=== PATIENT | male | born 1965 | race Caucasian/White ===

== ENCOUNTER 2018-02-03 19:11 | Emergency (ER) | payer SELFPAY ==
[~2018-02-03] VITALS: Ht 180.3 cm; Wt 100.0 kg
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
--- NOTE | 2018-02-03 20:03 | RADRPT ---
EXAM DATE: 02/03/2018 7:57 PM EDT AGE/SEX: 52 years / Male INDICATIONS: Trauma. CLINICAL DATA: This is the patient's initial encounter. Patient reports that signs and symptoms have been present for 1 day and indicates a pain score of 6/10. MEDICAL/SURGICAL HISTORY: None. None. COMPARISON: No prior [place] exams available for comparison. FINDINGS: The vertebral bodies are in normal alignment without evidence of compression deformity . Pedicles ar e seen at all levels. Bone density is normal for age. Soft tissues are grossly intact. CONCLUSION: No evidence of compression deformity or spondylolisthesis. Electronically signed by: Isma Enamorado MD 02/03/2018 8:02 PM EDT
--- NOTE | 2018-02-03 20:06 | RADRPT ---
EXAM DATE: 02/03/2018 8:02 PM EDT AGE/SEX: 52 years / Male INDICATIONS: Shortness of breath and back pain. CLINICAL DATA: This is the patient's initial encounter. Patient reports that signs and symptoms have been present for 1 day and indicates a pain score of 0/10. MEDICAL/SURGICAL HISTORY: None. None. COMPARISON: No prior [place] exams available for comparison. FINDINGS: A single AP view of the chest demonstrates the lungs to be symmetrically aerated without evidence of mass, infiltrate or effusion. The cardiomediastinal contours are unremarkable. Osseous structures a re intact. CONCLUSION: No active disease. Electronically signed by: Sharan Caballero MD 02/03/2018 8:05 PM EDT
--- NOTE | 2018-02-03 20:29 | RADRPT ---
EXAM DATE: 02/03/2018 8:22 PM EDT AGE/SEX: 52 years / Male INDICATIONS: Trauma. CLINICAL DATA: This is the patient's initial encounter. Patient reports that signs and symptoms have been present for 1 day and indicates a pain score of 7/10. MEDICAL/SURGICAL HISTORY: None. None. RADIATION DOSE: 19.22 CTDI (mGy) COMPARISON: No prior [place] exams available for comparison. TECHNIQUE: Contiguous axial images were obtained using helical multirow detector technique. The vol umetric data was post-processed with multiplanar reconstruction in oblique axial, sagittal, and coron al planes. Using automated exposure control and adjustment of the mA and/or kV according to patient s ize, radiation dose was kept as low as reasonably achievable to obtain optimal diagnostic quality sera ges. FINDINGS: There is normal alignment of the vertebral bodies of the cervical spine and preservation of vertebral body height. The atlantoaxial articulation is intact. There is unilateral focal hypertrophic change in the lateral masses and uncovertebral joint on the right side at the C3-4 level C2-3: No fracture seen. The neural foramina are patent. C3-4: No fracture seen. Right-sided lateral mass hypertrophy and uncovertebral joint hypertrophy cau ses moderately severe right-sided bony neural foraminal stenosis. C4-5: No fracture seen. The neural foramina are patent. C5-6: No fracture seen. The neural foramina are patent. C6-7: No fracture seen. The neural foramina are patent. C7-T1: No fracture seen. The neural foramina are patent. CONCLUSION: 1. No evidence of compression deformity or spondylolisthesis. 2. 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 Electronically signed by: Isma Enamorado MD 02/03/2018 8:28 PM EDT
--- NOTE | 2018-02-03 20:30 | RADRPT ---
EXAM DATE: 02/03/2018 8:23 PM EDT AGE/SEX: 52 years / Male INDICATIONS: Trauma CLINICAL DATA: This is the patient's initial encounter. Patient reports that signs and symptoms have been present for 1 day and indicates a pain score of 7/10. MEDICAL/SURGICAL HISTORY: None. None. RADIATION DOSE: 42.13 CTDI (mGy) COMPARISON: No prior [place] exams available for comparison. TECHNIQUE: CT of the head without contrast. Using automated exposure control and adjustment of the mA and/or kV according to patient size, radiation dose was kept as low as reasonably achievable to ob tain optimal diagnostic quality images. FINDINGS: Cerebrum: The ventricles are normal for age. No evidence of midline shift, mass lesion, hemorrhage or acute infarction. No extraaxial fluid collections are seen. Posterior Fossa: The cerebellum and brainstem are intact. The 4th ventricle is midline. The cerebe llopontine angle is unremarkable. Extracranial: The visualized portion of the orbits is intact. Skull: The calvaria is intact. No evidence of skull fracture. CONCLUSION: 1. No acute intracranial abnormalities. Electronically signed by: Sharan Caballero MD 02/03/2018 8:29 PM EDT
--- NOTE | 2018-02-03 20:37 | PD ---
Data Data Last Documented VS Vital Signs Date Time Temp Pulse Resp B/P (MAP) Pulse Ox O2 Delivery O2 Flow Rate FiO2 02/03/18 21:01 98.7 02/03/18 20:57 76 16 96 Room Air Orders Orders Ct Brain W/O Iv Contrast(Rout) (02/03/18 19:22) Ct Cerv Spine W/O Contrast (02/03/18 19:22) Chest, Single Ap (02/03/18 19:22) Spine, Thoracic-Ap/Lat/Sw(3vw) (02/03/18 19:22) Ed Discharge Order (02/03/18 20:37) [facility] Medical Record Reviewed: Yes Supervised Visit with LOLA: Yes Narrative Course I, Dr. Wise, have reviewed the advance practice practitioner's documentation and am in agreement, met with the patient face to face, made the diagnosis, and the medical decision making was done by me. *My assessment and Findings: Temp 98.7 oral Vital Signs Date Time Temp Pulse Resp B/P (MAP) Pulse Ox O2 Delivery O2 Flow Rate FiO2 02/03/18 20:57 76 16 135/71 (92) 96 Room Air Last Impressions Thoracic Spine X-Ray 02/03/181921 Signed Impressions: CONCLUSION: No evidence of compression deformity or spondylolisthesis. Head CT 02/03/181921 Signed Impressions: CONCLUSION: 1. No acute intracranial abnormalities. Chest X-Ray 02/03/181921 Signed Impressions: CONCLUSION: No active disease. Cervical Spine CT 02/03/181921 Signed Impressions: CONCLUSION: 1. No evidence of compression deformity or spondylolisthesis. 2. 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 Patient assessed at 8:30 PM. He reported thoracic spine pain at that time. Patient reassessed again at 8:40 PM after the imaging results were available and he complained at that time of pain. Results of the imaging were discussed with the patient. Pt reiterated complaints of cspine, tspine and right shoulder pain. Patient at that point stated, "I want to leave. I am going to go to another hospital." Patient is A and O 4. He is ambulatory with a normal gait. Patient refused physical exam by the undersigned. Risks of leaving and alternatives to leaving AGAINST MEDICAL ADVICE were discussed. Patient has had some alcohol today however I believe he does have capacity for independent decision making and can make an informed decision about risks benefits and alternatives of leaving AGAINST MEDICAL ADVICE. Patient is aware he can return anytime. At 9:02 PM the patient was observed walking from the bathroom into his room and then leaning against the nursing station in front of the nurse as she entered the AMA paperwork print orders. Patient ambulated from the department at 9:04 PM. Every reasonable effort to have the patient stay for further evaluation was made. Diagnosis Primary Impression: Left against medical advice Med/Other Pt SpecificInfo: No Change to Meds Disposition: 07 AGAINST MEDICAL ADVICE Condition: Stable Ebenezer Wise MD February 03, 2018 20:37
[2018-02-03 20:57] VITALS: BP 135/71; PULSE 76; RESP 16; O2SAT 96
[2018-02-03 21:01] VITALS: TEMP 98.7
== END 2018-02-03 21:40 | disposition left against medical advice (07) ==
LOC: NEPD 19:11
DX: S09.90XA Unspecified injury of head, initial encounter (principal); M25.511 Pain in right shoulder; M54.6 Pain in thoracic spine; W20.8XXA Other cause of strike by thrown, projected or falling object, initial encounter; Y92.89 Other specified places as the place of occurrence of the external cause
CPT/HCPCS: 70450; 71045; 72072; 72125; 99284